=== PATIENT | male | born 1985 | race American Indian/Alaskan Native ===

== ENCOUNTER 2018-05-10 19:54 | Emergency (ER) | payer SELFPAY ==
[2018-05-10] MEDS ORDERED: Naloxone 0.4 mg/ml Inj (Adult) IVP STA (20:10)
--- NOTE | 2018-05-10 20:13 | ED PDOC ---
HPI: Psych/Substance Abuse Time Seen by Provider: 05/10/18 20:00 Chief Complaint (Nursing): Medical Clearance Chief Complaint (Provider): substance abuse History Per: EMS, Other ([facility]) Additional Complaint(s): 32 y/o male brought in by EMS in police custody for evaluation of possible substance abuse. Patient was on foot pursuit from police and was thought to have be seen possibly swallowing an unknown substance before being caught and handcuffed. Patient then became somnolent and was given intranasal narcan in the field with improvement in arousability. HPI limited Past Medical History Reviewed: Historical Data, Nursing Documentation, Vital Signs Vital Signs: Last Vital Signs Temp 97.2 F L 05/10/18 20:00 Pulse 100 H 05/10/18 20:00 Resp 12 05/10/18 20:00 BP 143/92 H 05/10/18 20:00 Pulse Ox 97 05/10/18 20:00 - Medical History PMH: No Chronic Diseases - Family History Family History: States: No Known Family Hx - Allergies Allergies/Adverse Reactions: Allergies Allergy/AdvReac Type Severity Reaction Status Date / Time No Known Allergies Allergy Verified 05/10/18 19:59 Review of Systems Review Of Systems: ROS cannot be obtained secondary to pt's inabilty to answer questions. Physical Exam - Reviewed Nursing Documentation Reviewed: Yes Vital Signs Reviewed: Yes - Physical Exam Appears: Positive for: Well, Non-toxic, No Acute Distress (sleeping) Head Exam: Positive for: ATRAUMATIC, NORMAL INSPECTION, NORMOCEPHALIC Skin: Positive for: Normal Color Eye Exam: Positive for: Normal appearance, EOMI. Negative for: PERRL (pinpoint bilaterally) ENT: Positive for: Normal ENT Inspection Cardiovascular/Chest: Positive for: Regular Rate, Rhythm Respiratory: Positive for: Normal Breath Sounds Gastrointestinal/Abdominal: Positive for: Normal Exam Back: Positive for: Normal Inspection Extremity: Positive for: Normal ROM Neurologic/Psych: Positive for: Alert (responds to painful stimuli) - Laboratory Results Result Diagrams: 05/10/18 20:30 05/10/18 20:30 - ECG O2 Sat by Pulse Oximetry: 97 - Other Rad abdomen xray X-Ray: Viewed By Me (reviewed with ED attending) X-Ray Interpretation: no acute findings, no FB - Progress ED Course And Treament: -accucheck -cbc -cmp -alcohol -salicylate -acetaminophen -urine drug screen -CT head -abdomen flat plate -IV narcan -geodetic advisor -ABG EXAM: CT Head without Intravenous Contrast. CLINICAL HISTORY: Ams medical clearance TECHNIQUE: Axial computed tomography images of the head/brain without intravenous contrast. 1640.55 mGy-cm COMPARISON: None provided. FINDINGS: BRAIN No acute intraparenchymal hemorrhage. No mass lesion. No CT evidence for acute territorial infarct. No midline shift or extra-axial collections. VENTRICLES: No hydrocephalus. ORBITS: The orbits are unremarkable. SINUSES AND MASTOIDS: The paranasal sinuses and mastoid air cells are clear. BONES: No fracture. SOFT TISSUES: Unremarkable. IMPRESSION: No acute intracranial abnormality 21:30 Patient sleeping; no distress. Arousable to tactile stimuli. Vitals stable on monitor 23:00 Patient sleeping; no distress. Arousable to tactile stimuli.Vitals stable on monitor 00:30 Patient sleeping; no distress. Arousable to tactile stimuli.Vitals stable on monitor 2:00 Patient sleeping; no distress. Arousable to tactile stimuli.Vitals stable on monitor 3:30 Patient sleeping; no distress. Arousable to tactile stimuli.Vitals stable on monitor 4:30 Patient awake, tolerated water Patient evaluated by turntable worker; does not meet criteria for admission at this time as per Dr. Yanez Will order CT abd/pelvis to r/out ingestion of drugs CT SCAN OF THE ABDOMEN AND PELVIS WITHOUT ORAL OR IV CONTRAST. CLINICAL INDICATION: Possibly ingested back of truck. TECHNIQUE: Axial and reformatted sagittal and coronal images of the abdomen pelvis obtained without IV contrast administration. COMPARISON: None. FINDINGS: The visualized lung bases are unremarkable. Normal unenhanced liver. Normal gallbladder and extrahepatic biliary system. Normal unenhanced spleen. Normal pancreas. Normal bilateral adrenal glands. Normal size of the right kidney. There is no right renal mass. There are no right renal calculi. There is no right hydronephrosis. Normal visualized right ureter. Normal size of the left kidney. There is no left renal mass. There are no left renal calculi. There is no left hydronephrosis. Normal visualized left ureter. Normal visualized stomach. Normal small intestine. Normal colon. The appendix is visualized and appears normal. There is no demonstrated peritoneal fluid. Normal abdominal aorta. Normal inferior vena cava. Normal retroperitoneum. Normal urinary bladder. There is no pelvic mass lesion or lymphadenopathy. There is no pelvic fluid. Normal abdominal wall. Normal osseous structures. IMPRESSION: Normal unenhanced CT of the abdomen and pelvis. No radiodense foreign body is seen in the gastrointestinal tract 5:50 Patient awake, alert, oriented x3. Patient requires no further intervention in the ED and is stable for discharge at this time Disposition - Clinical Impression Clinical Impression: Polysubstance abuse - Patient ED Disposition Is Patient to be Admitted: No Counseled Patient/Family Regarding: Studies Performed, Diagnosis, Need For Followup - Disposition Disposition: Discharged/Transfer to Law Enforcement Disposition Time: 05:51 Condition: IMPROVED Additional Instructions: Patient medically and psychiatrically cleared for incarceration Instructions: Polysubstance Abuse
[2018-05-10] MEDS ORDERED: Naloxone 0.4 mg/ml Inj (Adult) ONE (20:23)
[2018-05-10 20:38] LABS: BASO % 0.4 % (0.0-2.0); EOS # 0.1 K/uL (0.0-0.7); EOS % 1.6 % (0.0-4.0); HEMOGLOBIN 14.3 g/dL (12.0-18.0); LYMPH # 2.1 K/uL (1.0-4.3); LYMPH % 30.5 % (20.0-40.0); MEAN CELL VOLUME 96.1 fl (80.0-94.0); MEAN CORPUSCULAR HEMOGLOBIN 31.7 pg (27.0-31.0); MEAN PLATELET VOLUME 8.9 fl (7.2-11.7); MONO # 0.7 K/uL (0.0-0.8); MONO % 10.7 % (0.0-10.0); NEUT # 3.9 K/uL (1.8-7.0); NEUT % 56.8 % (50.0-75.0); RBC 4.5 Mil/uL (4.40-5.90); RED CELL DISTRIBUTION WIDTH 13.7 % (11.5-14.5); WHITE BLOOD COUNT 6.8 K/uL (4.8-10.8)
[2018-05-10 20:53] LABS: ALB/GLOB RATIO 1.4 (1.0-2.1); ALBUMIN 4.3 g/dL (3.5-5.0); ALT/SGPT 77 U/L (21-72); AST/SGOT 94 U/L (17-59); BLOOD UREA NITROGEN 15 mg/dl (9-20); CALCIUM 9.2 mg/dL (8.4-10.2); GFR NON-AFRICAN AMERICAN > 60
[2018-05-10 21:13] LABS: BARBITURATES, UR NEGATIVE (NEGATIVE); BENZODIAZEPINES, UR NEGATIVE (NEGATIVE); OPIATES, UR NEGATIVE (NEGATIVE); PHENCYCLIDINE, UR NEGATIVE (NEGATIVE)
[2018-05-10 22:01] LABS: ACETAMINOPHEN < 10.0 ug/ml (10.0-30.0); SALICYLATE < 1.0 mg/dl
[2018-05-10 22:41] LABS: ABG ALLEN TEST YES; ARTERIAL BLOOD GAS HCO3 26.3 mmol/L (21-28); ARTERIAL BLOOD GAS PCO2 45 mm/Hg (35-45); ARTERIAL BLOOD GAS PH 7.39 (7.35-7.45); ARTERIAL BLOOD GAS PO2 105 mm/Hg (80-100); ARTERIAL BLOOD GAS TCO2 28.6 mmol/L (22-28)
[2018-05-11 02:32] VITALS: RESP 18
[2018-05-11 07:05] VITALS: BP 119/89; PULSE 63; TEMP 98.2; O2SAT 100
--- NOTE | 2018-05-11 09:34 | CT ---
Date of service: 05/10/2018 PROCEDURE: CT HEAD WITHOUT CONTRAST. HISTORY: ams COMPARISON: The TECHNIQUE: Axial computed tomography images were obtained through the head/brain without intravenous contrast. Radiation dose: Total exam DLP = 1640.55 mGy-cm. This CT exam was performed using one or more of the following dose reduction techniques: Automated exposure control, adjustment of the mA and/or kV according to patient size, and/or use of iterative reconstruction technique. FINDINGS: HEMORRHAGE: No intracranial hemorrhage. BRAIN: No mass effect or edema. No atrophy or chronic microvascular ischemic changes. VENTRICLES: Unremarkable. No hydrocephalus. CALVARIUM: Unremarkable. PARANASAL SINUSES: Unremarkable as visualized. No significant inflammatory changes. MASTOID AIR CELLS: Unremarkable as visualized. No inflammatory changes. OTHER FINDINGS: None. IMPRESSION: Normal CT of the Head.
--- NOTE | 2018-05-11 12:08 | CT ---
Date of service: 05/11/2018 PROCEDURE: CT Abdomen and Pelvis with Oral contrast. HISTORY: Possibly ingested bag of drugs COMPARISON: No prior TECHNIQUE: Contiguous axial images of the abdomen and without oral or intravenous contrast. Additional 2D sagittal and coronal l reformats generated. Radiation dose: Total exam DLP = 275.52 mGy-cm. This CT exam was performed using one or more of the following dose reduction techniques: Automated exposure control, adjustment of the mA and/or kV according to patient size, and/or use of iterative reconstruction technique. FINDINGS: LOWER THORAX: Heart size within range of normal. No significant pericardial effusion. There is a small hiatal hernia. Minimal linear/nodular scarring changes seen medial aspect left lung base extending to the pleural surface felt be postinflammatory in origin. Lung carnes otherwise clear.. No evidence of basilar pneumothorax. LIVER: Liver is upper limits of normal measuring approximately 18 cm in CC dimension. No obvious hepatic mass collection or calcification.. Mild fatty hepatic infiltration. No definitive hepatic masses or collections seen on this noncontrast study. GALLBLADDER AND BILE DUCTS: Gallbladder not well delineated due to fatty infiltration as well as several adjacent loops of small bowel. No obvious intraluminal gallbladder calculi. PANCREAS: Unremarkable. No mass. No ductal dilatation. SPLEEN: Unremarkable. No splenomegaly. ADRENALS: No obvious adrenal lesions. KIDNEYS AND URETERS: Kidneys exhibit relatively symmetric size. No evidence of nephrolithiasis or hydronephrosis. No obvious renal masses or collections seen on this noncontrast study. BLADDER: The urinary bladder is markedly distended. Rule out urinary retention or bladder outlet obstruction no evidence of intraluminal urinary bladder calculi.. REPRODUCTIVE: Unremarkable. APPENDIX: Normal appendix with no evidence of surrounding inflammatory changes.. BOWEL: Evaluation of the bowel is limited due to the lack of oral contrast material. Stomach is collapsed due to incomplete distention. Note that the concomitant wall thickening due to gastritis or other intrinsic wall or invasive wall lesion not excluded. There are several on minimally prominent fluid-filled loops of small bowel possibly representing an ileus. Stool and air seen throughout the large bowel. No definitive evidence of radiopaque foreign bodies seen within the lumen of the bowel. PERITONEUM: Unremarkable. No fluid collection. No free air. LYMPH NODES: Unremarkable. No enlarged lymph nodes. VASCULATURE: Unremarkable. No aortic aneurysm. No significant aortic atherosclerotic calcification or mural plaque present. BONES: No fracture or destructive lesion. OTHER FINDINGS: None. IMPRESSION: Limited study due to the lack of oral and intravenous contrast material as well as a paucity of intraperitoneal/retroperitoneal fat. Borderline hepatomegaly. Fatty infiltration. Findings suggest mild ileus. No definitive radiopaque foreign body seen within the lumen of the bowel. Urinary bladder is markedly distended; rule out urinary retention -bladder outlet obstruction
--- NOTE | 2018-05-11 12:38 | RAD ---
Date of service: 05/10/2018 HISTORY: Possible ingestion FB COMPARISON: None available. FINDINGS: BOWEL: Normal. No obstruction. No free air. BONES: Normal. OTHER FINDINGS: None. IMPRESSION: No definitive radiopaque foreign bodies are identified this limited plain film study of the abdomen. Consider followup CT scan further evaluation..
== END 2018-05-11 06:05 ==
LOC: H.ER 19:54
DX: F19.10 Other psychoactive substance abuse, uncomplicated (principal)
CPT/HCPCS: 70450; 74018; 74176; 80053; 82803; 82948; 85025; 96374; 99284; G0480; J2310

== ENCOUNTER 2018-07-08 18:09 | Emergency (ER) | payer SELFPAY ==
[2018-07-08] MEDS ORDERED: Naloxone 0.4 mg/ml Inj (Adult) IVP STA ×2 (18:22→18:36)
--- NOTE | 2018-07-08 18:43 | ED PDOC ---
HPI: Psych/Substance Abuse Time Seen by Provider: 07/08/18 18:18 Chief Complaint (Nursing): Substance Abuse Chief Complaint (Provider): Substance Abuse ED Caveat: Other (unresponsive) History Per: EMS, Other ([place] [employer]) History/Exam Limitations: clinical condition Current Symptoms Are (Timing): Still Present Additional Complaint(s): 32 year old male presents to the ED via EMS and under custody of [place] [employer] for evaluation of possible heroin ingestion. Patient initially was reported to be found awake, but was possibly seen ingesting bags of heroin. He arrived to ED obtunded and unresponsive to painful stimuli. History limited secondary to patient's clinical condition. PMD: unobtainable Past Medical History Reviewed: Unable To Obtain Vital Signs: Last Vital Signs Temp 97.9 F 07/08/18 18:14 Pulse 73 07/08/18 18:14 Resp 18 07/08/18 18:14 BP 132/78 07/08/18 18:14 Pulse Ox 99 07/08/18 18:14 - Medical History PMH: Denies: Diabetes, Hepatitis, HIV, HTN, Seizures, Sexually Transmitted Disease - Family History Family History: States: Unknown Family Hx - Allergies Allergies/Adverse Reactions: Allergies Allergy/AdvReac Type Severity Reaction Status Date / Time No Known Allergies Allergy Verified 07/08/18 18:13 Review of Systems Review Of Systems: ROS cannot be obtained secondary to pt's inabilty to answer questions. Physical Exam - Reviewed Nursing Documentation Reviewed: Yes Vital Signs Reviewed: Yes - Physical Exam Head Exam: Positive for: ATRAUMATIC, NORMOCEPHALIC Skin: Positive for: Normal Color, Warm Eye Exam: Positive for: Other (pinpoint pupils bilaterally) Cardiovascular/Chest: Positive for: Regular Rate, Rhythm Respiratory: Positive for: Normal Breath Sounds. Negative for: Respiratory Distress Gastrointestinal/Abdominal: Positive for: Normal Exam, Soft. Negative for: Tenderness Extremity: Negative for: Other (track jacome or injection sites) Neurologic/Psych: Negative for: Alert (pt is lethargic and not responding to verbal or painful stimuli), Oriented - Laboratory Results Result Diagrams: 07/08/18 18:41 - ECG O2 Sat by Pulse Oximetry: 99 (RA) Pulse Ox Interpretation: Normal Medical Decision Making Medical Decision Making: Time: 1820 Initial Impression: possible substance abuse Initial Plan: --EKG --Alcohol serum --CMP --Drug screen --U-dip --CBC with differential --CXR --Narcan 0.4mg IVP x2 --Abdomen XR Scribe Attestation: Documented by Etta Arambula, acting as a scribe for Vickey Castanon MD. Provider Scribe Attestation: All medical record entries made by the Scribe were at my direction and personally dictated by me. I have reviewed the chart and agree that the record accurately reflects my personal performance of the history, physical exam, medical decision making, and the department course for this patient. I have also personally directed, reviewed, and agree with the discharge instructions and disposition. Disposition - Clinical Impression Clinical Impression: Polysubstance abuse - Patient ED Disposition Is Patient to be Admitted: Transfer of Care - Disposition Disposition: Transfer of Care Disposition Time: 19:00 Condition: FAIR Forms: [employer] ([place]) Patient Signed Over To: Torsten Martines (Pending sobriety)
[2018-07-08 18:45] LABS: BASO % 0.5 % (0.0-2.0); EOS % 0.4 % (0.0-4.0); LYMPH # 1.6 K/uL (1.0-4.3); LYMPH % 16.8 % (20.0-40.0); MEAN CELL VOLUME 95.8 fl (80.0-94.0); MEAN CORPUSCULAR HEMOGLOBIN 32.2 pg (27.0-31.0); MEAN CORPUSCULAR HGB CONC 33.6 g/dL (33.0-37.0); MEAN PLATELET VOLUME 8.6 fl (7.2-11.7); MONO # 0.6 K/uL (0.0-0.8); MONO % 6.5 % (0.0-10.0); NEUT # 7.3 K/uL (1.8-7.0); NEUT % 75.8 % (50.0-75.0); NRBC % 0.1 % (0.0-0.0); RBC 4.33 Mil/uL (4.40-5.90); RED CELL DISTRIBUTION WIDTH 13.6 % (11.5-14.5); WHITE BLOOD COUNT 9.6 K/uL (4.8-10.8)
[2018-07-08 18:56] LABS: ALB/GLOB RATIO 1.1 (1.0-2.1); ALBUMIN 3.9 g/dL (3.5-5.0); ALT/SGPT 26 U/L (21-72); AST/SGOT 31 U/L (17-59); BLOOD UREA NITROGEN 13 mg/dl (9-20); CALCIUM 9.6 mg/dL (8.4-10.2); GFR NON-AFRICAN AMERICAN > 60
[2018-07-08] MEDS ORDERED: Sodium Chloride 0.9% 1,000 ML IV STA (18:59)
[2018-07-08 19:17] LABS: BARBITURATES, UR NEGATIVE (NEGATIVE); BENZODIAZEPINES, UR POSITIVE (NEGATIVE); OPIATES, UR NEGATIVE (NEGATIVE); PHENCYCLIDINE, UR NEGATIVE (NEGATIVE)
[2018-07-08 19:42] VITALS: O2SAT 100
--- NOTE | 2018-07-08 20:15 | ED PDOC ---
- Laboratory Results Result Diagrams: 07/08/18 18:41 07/08/18 18:41 Lab Results: Total Bilirubin 0.5 mg/dl (0.2-1.3) 07/08/18 18:41 AST 31 U/L (17-59) 07/08/18 18:41 ALT 26 U/L (21-72) 07/08/18 18:41 Alkaline Phosphatase 43 U/L (38-126) 07/08/18 18:41 Total Protein 7.6 G/DL (6.3-8.2) 07/08/18 18:41 Albumin 3.9 g/dL (3.5-5.0) 07/08/18 18:41 Globulin 3.7 gm/dL (2.2-3.9) 07/08/18 18:41 Albumin/Globulin Ratio 1.1 (1.0-2.1) 07/08/18 18:41 - ECG O2 Sat by Pulse Oximetry: 100 Medical Decision Making Medical Decision Makin Patient care endorsed from Dr. Castanon to this provider pending sobriety and reevaluation. 23:13 Patient remains awake, alert, and oriented x3. Patient continues to deny any ingestion of illicit substances. He was evaluated by crisis and cleared psychiatrically for discharge to [place] [facility] custody. Diagnosis is substance abuse. Scribe Attestation: Documented by Etta Arambula, acting as a scribe for Torsten Martines MD. Provider Scribe Attestation: All medical record entries made by the Scribe were at my direction and personally dictated by me. I have reviewed the chart and agree that the record accurately reflects my personal performance of the history, physical exam, medical decision making, and the department course for this patient. I have also personally directed, reviewed, and agree with the discharge instructions and disposition. Disposition - Clinical Impression Clinical Impression: Polysubstance abuse - POA Present On Arrival: None - Disposition Disposition: Discharged/Transfer to Law Enforcement Disposition Time: 23:13 Condition: STABLE Additional Instructions: Patient is medically and psychiatrically stable for incarceration Instructions: Polysubstance Abuse (DC) Forms: [employer] ([place])
[2018-07-08 23:56] VITALS: BP 117/76; PULSE 58; RESP 18; TEMP 98.8
--- NOTE | 2018-07-09 09:12 | CARD ---
APPROVED REPORT Date of service: 07/08/2018 EKG Measurement Heart [id number] <Conclusion> Normal sinus rhythm Moderate voltage criteria for LVH, may be normal variant Borderline ECG
--- NOTE | 2018-07-09 10:56 | RAD ---
Date of service: 07/08/2018 HISTORY: Ingestion COMPARISON: None available. FINDINGS: BOWEL: Nonobstructive bowel gas pattern appreciated. No abnormal internal calcifications identified. [id number] amount retained fecal material scattered throughout various large-bowel segments once again. No gross free intra peritoneal gas identified. BONES: Normal. OTHER FINDINGS: None. IMPRESSION: Nonobstructive bowel gas pattern. No abnormal intra-abdominal calcifications identified.
--- NOTE | 2018-07-09 10:58 | RAD ---
Date of service: 07/08/2018 HISTORY: cough COMPARISON: No prior. FINDINGS: LUNGS: No active pulmonary disease. PLEURA: No significant pleural effusion identified, no pneumothorax apparent. CARDIOVASCULAR: No aortic atherosclerotic calcification present. Normal cardiac size. No pulmonary vascular congestion. OSSEOUS STRUCTURES: No significant abnormalities. VISUALIZED UPPER ABDOMEN: Normal. OTHER FINDINGS: None. IMPRESSION: No active disease.
== END 2018-07-08 23:05 ==
LOC: H.ER 18:09
DX: F19.10 Other psychoactive substance abuse, uncomplicated (principal)
CPT/HCPCS: 71045; 74018; 80053; 82948; 85025; 93005; 96374; 99284; G0480; J2310; J7030